=== PATIENT | female | born 1990 | race Caucasian/White ===

== ENCOUNTER 2016-05-28 21:09 | Emergency (ER) | payer MEDICAID ==
[~2016-05-28] VITALS: Ht 165.1 cm; Wt 67.7 kg
[~2016-05-28 21:09] MED LIST: CIPR500T4 PO; PHEN-426 PO
[2016-05-28 21:30] VITALS: BP 111/67; PULSE 62; RESP 16; TEMP 98.1; O2SAT 99
[2016-05-28 23:41] LABS: BLOOD, URINE NEG (NEG); GLUCOSE,URINE NEG (NEG); KETONE, URINE NEG (NEG); NITRITE,URINE NEG (NEG)
[2016-05-28 23:44] LABS: URINE COLOR YELLOW (YELLW/STRAW)
[2016-05-28 23:45] LABS: COMMENT (UR) CULT NOT INDICATED; CULTURE IF INDICATED CULT NOT INDICATED; RBC, URINE 0-2 /hpf (0-3); SQUAMOUS EPITHELIAL CELL URINE 0-5 /hpf (0-5); WBC, URINE 0-2 /hpf (0-5)
[2016-05-29] MEDS ORDERED: METR0.7528 VAGINAL (00:41)
--- NOTE | 2016-05-29 00:46 | PD ---
HPI Chief Complaint: Farmworker Fur Problem/Complaint Time Seen by Provider: 23:26 Travel History International Travel<30 days: No Contact w/Intl Traveler<30days: No Traveled to known affect area: No History of Present Illness HPI 25-year-old female presents to the emergency department by private vehicle for evaluation of vaginal irritation and discharge. Patient states she has had similar symptoms before and has been treated for bacterial vaginosis. Patient denies any pain. No dysuria frequency urgency or hematuria. Last period was normal for her. Patient is 2 para 2 AB 0. Patient is in a monogamous relationship. Patient denies any abdominal pain. Patient denies pelvic pain. Patient denies fever chills. Patient is unable to identify exacerbating or alleviating factors. Patient rates discomfort 5/10 in intensity. PFSH Past Medical History Narrative Medical Ab0 Recurrent bacterial vaginosis; ; occasional alcohol use; nursing notes reviewed Medical History: Denies Significant Hx Diminished Hearing: No Immunizations Current: No Tetanus Vaccination: < 5 Years Influenza Vaccination: No ?: Not LMP: 05/01/16 : 2 Para: 2 Dilation and Curettage (D&C): No Past Surgical History Section: Yes Social History Alcohol Use: Yes (Glass of wine daily) Tobacco Use: No Substance Use: No Allergies-Medications (Allergen,Severity, Reaction): Coded Allergies: Erythromycin (Verified Allergy, Severe, Hives, 05/28/16) Reported Meds & Prescriptions Reported Meds & Active Scripts Active No Active Prescriptions or Reported Medications Review of Systems Except as stated in HPI: all other systems reviewed are Neg General / Constitutional: No: Fever, Chills HENT: No: Congestion Cardiovascular: No: Chest Pain or Discomfort Respiratory: No: Shortness of Breath Gastrointestinal: No: Nausea, Vomiting, Abdominal Pain Genitourinary: Positive: Discharge, No: Dysuria, Pelvic Pain, Vaginal Bleeding Musculoskeletal: No: Myalgias, Arthralgias Skin: No Rash Neurologic: No: Weakness, Dizziness Psychiatric: No: Anxiety Endocrine: No: Heat Intolerance, Cold Intolerance Hematologic/Lymphatic: No: Easy Bruising Physical Exam Narrative GENERAL: Well-developed well-nourished female in no acute distress no respiratory distress SKIN: Warm and dry. HEAD: Normocephalic. EYES: No scleral icterus. No injection or drainage. NECK: Supple, trachea midline. No JVD or lymphadenopathy. CARDIOVASCULAR: Regular rate and rhythm without murmurs, gallops, or rubs. RESPIRATORY: Breath sounds equal bilaterally. No accessory muscle use. GASTROINTESTINAL: Abdomen soft, non-tender, nondistended. Pelvic exam: External exam no redness no induration no lesions; speculum exam scant white cloudy thin discharge no blood no clots no tissue cervical os closed; bimanual exam no adnexal mass or tenderness noted uterine enlargement or cervical motion tenderness. MUSCULOSKELETAL: No cyanosis, or edema. BACK: Nontender without obvious deformity. No CVA tenderness. Data Data Last Documented VS Vital Signs Date Time Temp Pulse Resp B/P Pulse Ox O2 Delivery O2 Flow Rate FiO2 05/28/16 21:30 98.1 62 16 111/67 99 Room Air Orders Gc And Chlamydia Pcr (05/28/16 23:27) Wet Prep Profile (05/28/16 23:27) Urinalysis - C+S If Indicated (05/28/16 23:27) Ed Urine Pregnancytest Poc (05/28/16 23:27) Labs Laboratory Tests Test 05/28/16 23:30 Urine Color YELLOW Urine Turbidity CLEAR Urine pH 6.0 Urine Specific [place] 1.025 Urine Protein NEG mg/dL Urine Glucose (UA) NEG mg/dL Urine Ketones NEG mg/dL Urine Occult Blood NEG Urine Nitrite NEG Urine Bilirubin NEG Urine Leukocyte Esterase NEG Urine RBC 0-2 /hpf Urine WBC 0-2 /hpf Urine Squamous Epithelial 0-5 /hpf Cells Urine Bacteria NONE /hpf Microscopic Urinalysis Comment CULT NOT INDICATED Clue Cells (Wet Prep) NONE SEEN Vaginal Trichomonas (Wet Prep) NONE SEEN Vaginal Yeast (Wet Prep) NONE SEEN MDM Medical Decision Making Medical Screen Exam Complete: Yes Emergency Medical Condition: Yes Medical Record Reviewed: Yes Interpretation(s) UA: wnl wet prep: negative poc hcg: negative Differential Diagnosis Vaginal discharge, bacterial vaginosis, yeast/candidiasis, UTI, Narrative Course Urinalysis wet prep and [id number] values are negative; exam consistent with probable bacterial vaginosis; patient given prescription for MetroGel is stable for outpatient management Diagnosis Primary Impression: Vaginosis Referrals: Primary Care Physician call for appointment Patient Instructions: General Instructions Additional Instructions: Complete MetroGel vaginal for scripts follow-up with primary care provider Return to the emergency department for any concerns or change in condition Med/Other Pt SpecificInfo: Prescription(s) given Scripts Metronidazole Vaginal Gel (Metrogel Vaginal Gel)0.75 % Gel1 Appl VAGINAL HS #1 TUBE Ref 0 Prov:Pilar Hooper MD 05/29/16 Disposition: 01 DISCHARGE HOME Condition: Stable Pilar Hooper MD May 29, 2016 00:46
[2016-05-29 00:55] VITALS: BP 118/68; PULSE 72; RESP 14; O2SAT 100
[2016-05-29 04:07] LABS: CHLAMYDIA PCR NOT DETECTED (NOT DETECT); NEISSERIA PCR NOT DETECTED (NOT DETECT)
== END 2016-05-29 01:00 | disposition home or self-care (01) ==
LOC: PHED 21:09
DX: N76.0 Acute vaginitis (principal)
CPT/HCPCS: 81001; 84703; 87210; 87491; 87591; 99283

== ENCOUNTER 2016-07-08 11:38 | Emergency (ER) | payer MEDICAID ==
[~2016-07-08] VITALS: Ht 165.1 cm; Wt 65.4 kg
[~2016-07-08 11:38] MED LIST changes: -CIPR500T4 PO; +METR0.7528 VAGINAL; -PHEN-426 PO
[2016-07-08 11:40] VITALS: BP 107/69; PULSE 70; RESP 16; TEMP 98.8; O2SAT 96
--- NOTE | 2016-07-08 11:56 | PD ---
HPI Chief Complaint: Abdominal Pain Time Seen by Provider: 11:55 Travel History International Travel<30 days: No Contact w/Intl Traveler<30days: No Traveled to known affect area: No History of Present Illness HPI 25-year-old female came to the emergency room with history of abdominal cramps and diarrhea since yesterday. Patient says that she ate lunch at a restaurant and soon after her stomach started to rumble and she started getting some cramps. She was at work when she started getting chills. After coming home she just laid in her bed but then had to go to the bathroom 3 times and had watery diarrhea. She's been nauseous but trying not to vomit since she doesn't like to vomit. Vital signs otherwise stable. She is otherwise a healthy person. [facility] Past Medical History Narrative Medical List of his past medical, surgical, social and family history is reviewed from the nursing note. Medical History: Denies Significant Hx Diminished Hearing: No Immunizations Current: No ?: Not LMP: 06/29/16 : 2 Para: 2 Dilation and Curettage (D&C): No Past Surgical History Surgical History: No Previous Surgery Section: Yes Social History Alcohol Use: No Tobacco Use: No Substance Use: No Allergies-Medications (Allergen,Severity, Reaction): Coded Allergies: Erythromycin (Verified Allergy, Severe, Hives, 07/09/16) Comments List of her allergies reviewed from the nursing note. Reported Meds & Prescriptions Reported Meds & Active Scripts Active Bentyl (Dicyclomine HCl) 20 Mg Tab 20 Mg PO QID Lortab (Hydrocodone-Acetaminophen) 5-325 Mg Tab 1 Tab PO Q6H PRN Zofran Odt (Ondansetron Odt) 4 Mg Tab 4 Mg SL Q6HR PRN Narrative Medication List of her home medications reviewed from the nursing note. Review of Systems Except as stated in HPI: all other systems reviewed are Neg Physical Exam Narrative GENERAL: Awake, alert, anxious, mild distress SKIN: Focused skin assessment warm/dry. HEAD: Atraumatic. Normocephalic. EYES: Pupils equal and round. No scleral icterus. No injection or drainage. ENT: No nasal bleeding or discharge. Mucous membranes pink and moist. NECK: Trachea midline. No JVD. CARDIOVASCULAR: Regular rate and rhythm. No murmur appreciated. RESPIRATORY: No accessory muscle use. Clear to auscultation. Breath sounds equal bilaterally. GASTROINTESTINAL: Abdomen soft, non-tender, nondistended. Hyperactive bowel sounds. Hepatic and splenic margins not palpable. MUSCULOSKELETAL: No obvious deformities. No clubbing. No cyanosis. No edema. NEUROLOGICAL: Awake and alert. No obvious cranial nerve deficits. Motor grossly within normal limits. Normal speech. PSYCHIATRIC: Appropriate mood and affect; insight and judgment normal. Data Data Last Documented VS Vital Signs Date Time Temp Pulse Resp B/P Pulse Ox O2 Delivery O2 Flow Rate FiO2 07/08/16 13:40 67 16 87/50 99 Room Air 07/08/16 11:40 98.8 Orders Basic Metabolic Panel (Bmp) (07/08/16 12:00) Complete Blood Count With Diff (07/08/16 12:00) Iv Access Insert/Monitor (07/08/16 12:00) Ecg Monitoring (07/08/16 12:00) Oximetry (07/08/16 12:00) Ondansetron Inj (Zofran Inj) (07/08/16 12:00) Sodium Chlor 0.9% 1000 Ml Inj (Ns 1000 M (07/08/16 12:00) Sodium Chloride 0.9% Flush (Ns Flush) (07/08/16 12:00) Dicyclomine (Bentyl) (07/08/16 12:15) Labs Laboratory Tests Test 07/08/16 12:05 White Blood Count 4.2 TH/MM3 Red Blood Count 4.10 MIL/MM3 Hemoglobin 13.5 GM/DL Hematocrit 38.7 % Mean Corpuscular Volume 94.4 FL Mean Corpuscular Hemoglobin 32.9 PG Mean Corpuscular Hemoglobin 34.8 % Concent Red Cell Distribution Width 12.3 % Platelet Count 212 TH/MM3 Mean Platelet Volume 8.3 FL Neutrophils (%) (Auto) 64.6 % Lymphocytes (%) (Auto) 20.5 % Monocytes (%) (Auto) 14.2 % Eosinophils (%) (Auto) 0.2 % Basophils (%) (Auto) 0.5 % Neutrophils # (Auto) 2.7 TH/MM3 Lymphocytes # (Auto) 0.9 TH/MM3 Monocytes # (Auto) 0.6 TH/MM3 Eosinophils # (Auto) 0.0 TH/MM3 Basophils # (Auto) 0.0 TH/MM3 CBC Comment DIFF FINAL Differential Comment Sodium Level 143 MEQ/L Potassium Level 3.9 MEQ/L Chloride Level 108 MEQ/L Carbon Dioxide Level 27.8 MEQ/L Anion Gap 7 MEQ/L Blood Urea Nitrogen 7 MG/DL Creatinine 0.56 MG/DL Estimat Glomerular Filtration 132 ML/MIN Rate Random Glucose 93 MG/DL Calcium Level 8.3 MG/DL MDM Medical Decision Making Medical Screen Exam Complete: Yes Emergency Medical Condition: Yes Medical Record Reviewed: Yes Differential Diagnosis Acute gastroenteritis, food poisoning Narrative Course 12:22 PM I have ordered IV fluid bolus. Patient will get something for nausea and Bentyl by mouth. Awaiting for the blood test results to come back. 1:28 PM test results are within normal limit. Patient will be discharged home. Procedures EKG Prior to Arrival: No Diagnosis Primary Impression: Viral illness Additional Impression: Acute gastroenteritis Referrals: Primary Care Physician 2 days Additional Instructions: Please return to the ER if the condition worsens or any other new concerns. Otherwise take the medication as per the prescription direction. Follow-up with the primary care. Med/Other Pt SpecificInfo: Prescription(s) given Scripts Ondansetron Odt (Zofran Odt)4 Mg Tab4 Mg SL Q6HR PRN (Nausea/Vomiting) #10 TAB Ref 0 Prov:Lora Cortez MD 07/08/16 Disposition: 01 DISCHARGE HOME Condition: Stable Lora Cortez MD July 08, 2016 11:56
[2016-07-08] MEDS ORDERED: ONDANSETRON HCL 4 MG/2 ML VIAL IVP ONE (12:00)
[2016-07-08] MEDS ORDERED: SODIUM CHLORIDE 0.9% FLUSH 10 ML FLUSH IV FLUSH PRN (12:00)
[2016-07-08] MEDS ORDERED: SODIUM CHLOR 0.9% 1000 ML INJ 1,000 ML IV SCH (12:00)
[2016-07-08] MEDS ORDERED: DICYCLOMINE HCL 10 MG CAP PO ONE (12:15)
[2016-07-08 12:19] LABS: AUTOMATED NEUTROPHIL # 2.7 TH/MM3 (1.8-7.7); BASOPHIL % 0.5 % (0.0-2.0); EOSINOPHIL % 0.2 % (0.0-4.0); HEMATOCRIT 38.7 % (35.0-46.0); HEMO FLAGS DIFF FINAL; LYMPH % 20.5 % (9.0-44.0); LYMPHOCYTE # 0.9 TH/MM3 (1.0-4.8); MEAN CELL VOLUME 94.4 FL (80.0-100.0); MEAN CORPUSCULAR HEMOGLOBIN 32.9 PG (27.0-34.0); MEAN CORPUSCULAR HGB CONC 34.8 % (32.0-36.0); MONO % 14.2 % (0.0-8.0); NEUT % 64.6 % (16.0-70.0); PLATELET COUNT 212 TH/MM3 (150-450); RED CELL DISTRIBUTION WIDTH 12.3 % (11.6-17.2); WHITE BLOOD COUNT 4.2 TH/MM3 (4.0-11.0)
[2016-07-08 12:39] VITALS: O2SAT 99
[2016-07-08 13:10] LABS: POTASSIUM 3.9 MEQ/L (3.5-5.1)
[2016-07-08 13:13] LABS: BICARBONATE 27.8 MEQ/L (21.0-32.0)
[2016-07-08] MEDS ORDERED: ZOFR4TAB3 SL (13:30)
[2016-07-08 13:40] VITALS: BP 87/50; PULSE 67; RESP 16; O2SAT 99
[2016-07-09] MEDS ORDERED: HYDR-3533 PO (23:08)
[2016-07-09] MEDS ORDERED: BENT20TA PO (23:34)
== END 2016-07-08 13:47 | disposition home or self-care (01) ==
LOC: PHED 11:38
DX: B34.9 Viral infection, unspecified (principal); K52.9 Noninfective gastroenteritis and colitis, unspecified
CPT/HCPCS: 80048; 85025; 96374; 99284; J2405; J7030

== ENCOUNTER 2016-07-09 19:36 | Emergency (ER) | payer MEDICAID ==
[~2016-07-09] VITALS: Ht 165.1 cm; Wt 66.4 kg
[~2016-07-09 19:36] MED LIST changes: -METR0.7528 VAGINAL; +ZOFR4TAB3 SL
[2016-07-09 19:39] VITALS: BP 107/76; PULSE 80; RESP 17; TEMP 98.9; O2SAT 100
--- NOTE | 2016-07-09 20:39 | PD ---
HPI Chief Complaint: Abdominal Pain Time Seen by Provider: 20:27 Travel History International Travel<30 days: No Contact w/Intl Traveler<30days: No Traveled to known affect area: No History of Present Illness HPI The patient is a 25-year-old female who is had lower abdominal cramps and diarrhea for 2 days. She states on Wednesday she had a fever about 103. She denies any blood in the stool. She is not nauseated today and has not vomited. She denies any family history of bowel problems like regional eyes or ulcerative colitis. She has had a but this is her only abdominal surgery, she still has her gallbladder and appendix. She was seen yesterday for this and the white count was in the 4000 range, she returns because of the painful cramping in the lower quadrants. The patient was given a prescription for Zofran yesterday for nausea. PFSH Past Medical History Medical History: Denies Significant Hx Diminished Hearing: No Immunizations Current: No Influenza Vaccination: No ?: Not LMP: 06/29/16 : 2 Para: 2 Dilation and Curettage (D&C): No Past Surgical History Section: Yes (X1) Social History Alcohol Use: No Tobacco Use: No Substance Use: No Allergies-Medications (Allergen,Severity, Reaction): Coded Allergies: Erythromycin (Verified Allergy, Severe, Hives, 07/09/16) Reported Meds & Prescriptions Reported Meds & Active Scripts Active Lortab (Hydrocodone-Acetaminophen) 5-325 Mg Tab 1 Tab PO Q6H PRN Zofran Odt (Ondansetron Odt) 4 Mg Tab 4 Mg SL Q6HR PRN Review of Systems Except as stated in HPI: all other systems reviewed are Neg Physical Exam Narrative GENERAL: The patient is alert, oriented 3 in moderate apparent distress with her bilateral lower quadrant pain. She does appear mildly dehydrated. SKIN: Focused skin assessment warm/dry. HEAD: Atraumatic. Normocephalic. EYES: Pupils equal and round. No scleral icterus. No injection or drainage. ENT: No nasal bleeding or discharge. Mucous membranes pink and moist. NECK: Trachea midline. No JVD. CARDIOVASCULAR: Regular rate and rhythm. No murmur appreciated. RESPIRATORY: No accessory muscle use. Clear to auscultation. Breath sounds equal bilaterally. GASTROINTESTINAL: Abdomen soft, with tenderness to direct palpation in the bilateral lower quadrants, nondistended. Hepatic and splenic margins not palpable. No guarding or rebound is present. MUSCULOSKELETAL: No obvious deformities. No clubbing. No cyanosis. No edema. NEUROLOGICAL: Awake and alert. No obvious cranial nerve deficits. Motor grossly within normal limits. Normal speech. PSYCHIATRIC: Appropriate mood and affect; insight and judgment normal. Data Data Last Documented VS Vital Signs Date Time Temp Pulse Resp B/P Pulse Ox O2 Delivery O2 Flow Rate FiO2 07/09/16 22:18 103/67 07/09/16 21:22 76 16 100 Room Air 07/09/16 19:39 98.9 Orders Complete Blood Count With Diff (07/09/16 20:33) Comprehensive Metabolic Panel (07/09/16 20:33) Lipase (07/09/16 20:33) Urinalysis - C+S If Indicated (07/09/16 20:33) Ct Abd/Pel W Iv Contrast(Rout) (07/09/16 20:33) Iv Access Insert/Monitor (07/09/16 20:33) Ecg Monitoring (07/09/16 20:33) Oximetry (07/09/16 20:33) Sodium Chloride 0.9% Flush (Ns Flush) (07/09/16 20:45) Ed Urine Pregnancytest Poc (07/09/16 20:33) Sodium Chlor 0.9% 1000 Ml Inj (Ns 1000 M (07/09/16 20:45) Iohexol 350 Inj (Omnipaque 350 Inj) (07/09/16 21:06) Dicyclomine (Bentyl) (07/09/16 23:15) Labs Laboratory Tests Test 07/09/16 07/09/16 20:40 20:50 White Blood Count 5.6 TH/MM3 Red Blood Count 4.03 MIL/MM3 Hemoglobin 12.8 GM/DL Hematocrit 37.5 % Mean Corpuscular Volume 93.0 FL Mean Corpuscular Hemoglobin 31.8 PG Mean Corpuscular Hemoglobin 34.2 % Concent Red Cell Distribution Width 12.1 % Platelet Count 193 TH/MM3 Mean Platelet Volume 8.4 FL Neutrophils (%) (Auto) 66.7 % Lymphocytes (%) (Auto) 18.7 % Monocytes (%) (Auto) 13.5 % Eosinophils (%) (Auto) 0.5 % Basophils (%) (Auto) 0.6 % Neutrophils # (Auto) 3.8 TH/MM3 Lymphocytes # (Auto) 1.0 TH/MM3 Monocytes # (Auto) 0.8 TH/MM3 Eosinophils # (Auto) 0.0 TH/MM3 Basophils # (Auto) 0.0 TH/MM3 CBC Comment DIFF FINAL Differential Comment Sodium Level 142 MEQ/L Potassium Level 3.5 MEQ/L Chloride Level 108 MEQ/L Carbon Dioxide Level 27.1 MEQ/L Anion Gap 7 MEQ/L Blood Urea Nitrogen 8 MG/DL Creatinine 0.55 MG/DL Estimat Glomerular Filtration 135 ML/MIN Rate Random Glucose 82 MG/DL Calcium Level 8.0 MG/DL Total Bilirubin 0.2 MG/DL Aspartate Amino Transf 18 U/L (AST/SGOT) Alanine Aminotransferase 18 U/L (ALT/SGPT) Alkaline Phosphatase 55 U/L Total Protein 6.9 GM/DL Albumin 3.6 GM/DL Lipase 100 U/L Urine Color YELLOW Urine Turbidity CLEAR Urine pH 5.5 Urine Specific [place] 1.015 Urine Protein NEG mg/dL Urine Glucose (UA) NEG mg/dL Urine Ketones NEG mg/dL Urine Occult Blood NEG Urine Nitrite NEG Urine Bilirubin NEG Urine Leukocyte Esterase NEG Urine RBC 0-2 /hpf Urine WBC 0-2 /hpf Urine Squamous Epithelial 0-5 /hpf Cells Urine Bacteria NONE /hpf Microscopic Urinalysis Comment CULT NOT INDICATED MDM Medical Decision Making Medical Screen Exam Complete: Yes Emergency Medical Condition: Yes Medical Record Reviewed: Yes Interpretation(s) The urine is negative and culture is not indicated. The complete metabolic profile shows a calcium of 8.0 but is otherwise normal. The lipase is normal. The CBC is normal, the white count is only 5600. Differential Diagnosis Colitis, appendicitis, gastroenteritis, diverticulitis, dehydration, electrolyte disorder, renal insufficiency Narrative Course The patient likely has a viral gastroenteritis. The blood work, CT imaging does not reveal any of the more serious diagnoses as listed above. Diagnosis Primary Impression: Acute gastroenteritis Med/Other Pt SpecificInfo: Prescription(s) given Scripts Hydrocodone-Acetaminophen (Lortab)5-325 Mg Tab1 Tab PO Q6H PRN (PAIN) #15 TAB Ref 0 Prov:Mike Mendez MD 07/09/16 Disposition: 01 DISCHARGE HOME Condition: Stable Mike Mendez MD July 09, 2016 20:39
[2016-07-09] MEDS ORDERED: SODIUM CHLORIDE 0.9% FLUSH 10 ML FLUSH IV FLUSH PRN (20:45)
[2016-07-09] MEDS: SODIUM CHLOR 0.9% 1000 ML INJ 1,000 ML IV SCH ×2 (20:50→22:08)
[2016-07-09 20:56] LABS: AUTOMATED NEUTROPHIL # 3.8 TH/MM3 (1.8-7.7); BASOPHIL % 0.6 % (0.0-2.0); EOSINOPHIL % 0.5 % (0.0-4.0); HEMATOCRIT 37.5 % (35.0-46.0); HEMO FLAGS DIFF FINAL; LYMPH % 18.7 % (9.0-44.0); MEAN CORPUSCULAR HEMOGLOBIN 31.8 PG (27.0-34.0); MEAN CORPUSCULAR HGB CONC 34.2 % (32.0-36.0); MONO % 13.5 % (0.0-8.0); NEUT % 66.7 % (16.0-70.0); PLATELET COUNT 193 TH/MM3 (150-450); RED BLOOD COUNT 4.03 MIL/MM3 (4.00-5.30); RED CELL DISTRIBUTION WIDTH 12.1 % (11.6-17.2); WHITE BLOOD COUNT 5.6 TH/MM3 (4.0-11.0)
[2016-07-09 20:57] LABS: BLOOD, URINE NEG (NEG); GLUCOSE,URINE NEG (NEG); KETONE, URINE NEG (NEG); NITRITE,URINE NEG (NEG); PH, URINE 5.5 (5.0-8.5)
[2016-07-09 21:00] LABS: URINE COLOR YELLOW (YELLW/STRAW)
[2016-07-09 21:01] LABS: COMMENT (UR) CULT NOT INDICATED; CULTURE IF INDICATED CULT NOT INDICATED; RBC, URINE 0-2 /hpf (0-3); SQUAMOUS EPITHELIAL CELL URINE 0-5 /hpf (0-5); WBC, URINE 0-2 /hpf (0-5)
[2016-07-09 21:04] LABS: CHLORIDE 108 MEQ/L (98-107); POTASSIUM 3.5 MEQ/L (3.5-5.1); SODIUM (NA) 142 MEQ/L (136-145)
[2016-07-09] MEDS ORDERED: IOHEXOL 350 MG/ML 10 ML VIAL (for RAD DIAG) IV ONE (21:06)
[2016-07-09 21:08] LABS: ANION GAP 7 MEQ/L (5-15); BICARBONATE 27.1 MEQ/L (21.0-32.0); BLOOD UREA NITROGEN 8 MG/DL (7-18)
[2016-07-09 21:11] LABS: ALT (GPT) 18 U/L (10-53); AST (GOT) 18 U/L (15-37); GLOMERULAR FILTRATION RATE 135 ML/MIN (>89)
[2016-07-09 21:13] LABS: TOTAL BILIRUBIN ADULT 0.2 MG/DL (0.2-1.0)
[2016-07-09 21:14] LABS: ALKALINE PHOSPHATASE 55 U/L (45-117)
[2016-07-09 21:22] VITALS: BP 90/51; PULSE 76; RESP 16; O2SAT 100
--- NOTE | 2016-07-09 21:56 | RADHPO ---
EXAM DATE/TIME: 07/09/2016 21:01 [facility] COMPARISON: CT ABDOMEN & PELVIS W CONTRAST, May 11, 2011, 21:23. INDICATIONS : Lower abdominal pain and cramping, diarrhea for 2 days with fever. IV CONTRAST: 98 cc Omnipaque 350 (iohexol) IV ORAL CONTRAST: No oral contrast ingested. RADIATION DOSE: 7.80 CTDIvol (mGy) MEDICAL HISTORY : None SURGICAL HISTORY : section. ENCOUNTER: Initial ACUITY: 2 days PAIN SCALE: 6/10 LOCATION: lower quadrant abdomen TECHNIQUE: Volumetric scanning of the abdomen and pelvis was performed. Using automated exposure control and ad justment of the mA and/or kV according to patient size, radiation dose was kept as low as reasonably achievable to obtain optimal diagnostic quality images. 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 No normal spleen is seen in a left upper quadrant. There are multiple lobular circumscribed masses in the medial right up per quadrant which are unchanged from prior and are presumably splenic moieties. The stomach is on th e right and the duodenum is not seen to interpose itself between the superior mesenteric artery and t he aorta in normal fashion. 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 The bowel structures are otherwise unremarkable with no abnormal dilatation, wall thickening or focal inflammatory change. The kidneys, adrenals and pancreas are unremarkable. In the pelvis, there is no evidence of free fluid, mass or adenopathy. The bladder is decompressed. T he inguinal regions are clear. The lung bases and the bony elements are unremarkable. CONCLUSION: No acute CT findings in the abdomen or pelvis. Developmental anomalies of the polysplenia spectrum as described Seth Stearns MD on July 09, 2016 at 21:39 Board Certified Radiologist. This report was verified electronically.
[2016-07-09 22:18] VITALS: BP 103/67
[2016-07-09] MEDS ORDERED: HYDR-3533 PO (23:08)
[2016-07-09] MEDS ORDERED: DICYCLOMINE HCL 10 MG CAP PO ONE (23:15)
[2016-07-09] MEDS ORDERED: BENT20TA PO (23:34)
== END 2016-07-09 23:39 | disposition home or self-care (01) ==
LOC: PHED 19:36
DX: K52.9 Noninfective gastroenteritis and colitis, unspecified (principal)
CPT/HCPCS: 74177; 80053; 81001; 83690; 84703; 85025; 96360; 96361; 99284; J7030; Q9967

== ENCOUNTER 2016-09-02 22:59 | Emergency (ER) | payer MEDICAID ==
[~2016-09-02] VITALS: Ht 165.1 cm; Wt 66.4 kg
[~2016-09-02 22:59] MED LIST changes: +BENT20TA PO; +HYDR-3533 PO
[2016-09-02 23:05] VITALS: BP 110/66; PULSE 66; RESP 16; TEMP 98.1; O2SAT 100; O2SAT 66
[2016-09-02 23:28] LABS: BLOOD, URINE NEG (NEG); GLUCOSE,URINE NEG (NEG); KETONE, URINE NEG (NEG); NITRITE,URINE NEG (NEG); PH, URINE 5.5 (5.0-8.5)
[2016-09-02 23:34] LABS: URINE COLOR STRAW (YELLW/STRAW)
[2016-09-02 23:35] LABS: COMMENT (UR) CULT NOT INDICATED; CULTURE IF INDICATED CULT NOT INDICATED; RBC, URINE 0-3 /hpf (0-3); SQUAMOUS EPITHELIAL CELL URINE 0-5 /hpf (0-5)
[2016-09-03] MEDS ORDERED: LIDOCAINE HCL 1% 50 ML VIAL IM ONE
[2016-09-03] MEDS ORDERED: DOXYCYCLINE HYCLATE 100 MG TAB PO ONE
[2016-09-03] MEDS ORDERED: cefTRIAXone 250 MG VIAL IM ONE
[2016-09-03] MEDS ORDERED: DOXY100C PO (00:04)
--- NOTE | 2016-09-03 00:05 | PD ---
HPI Chief Complaint: Returned Item Clerk Problem/Complaint Time Seen by Provider: 23:15 Travel History International Travel<30 days: No Contact w/Intl Traveler<30days: No Traveled to known affect area: No History of Present Illness HPI 25-year-old female presents to the emergency department for treatment of STD. Patient reports that 08/18/16 she went to the health department for her annual exam with blood work done and specimens collected to evaluate for STDs. For syphilis test HIV test and automated test reportedly negative and she was told she was positive for vomiting. Patient states that she was told to come back tomorrow to be treated. Patient denies . Patient states that she does not have gasoline to drive back to the health Department and presents now to be treated. Patient states she has not had any kind of evaluation since 08/18. Patient has been treated in the past for STD. Patient denies any pain. Patient states she just had a pelvic exam. Patient is desirous of receiving antibiotic and does not want to go through pelvic exam again. Patient denies states she receives the Depo-Provera injection. Patient is . Patient denies dysuria frequency urgency flank pain or hematuria. Patient's had no fever or chills. PFSH Past Medical History Narrative Medical STD G2 P 2 AB 0; ; no tobacco use; nursing notes reviewed Medical History: Denies Significant Hx Diminished Hearing: No Immunizations Current: No ?: Not LMP: "ON DEPO" : 2 Para: 2 Dilation and Curettage (D&C): No Past Surgical History Section: Yes (X1) Social History Alcohol Use: No Tobacco Use: No (QUIT AGE 19) Substance Use: No Allergies-Medications (Allergen,Severity, Reaction): Coded Allergies: Erythromycin (Verified Allergy, Severe, Hives, 09/02/16) Reported Meds & Prescriptions Reported Meds & Active Scripts Active Bentyl (Dicyclomine HCl) 20 Mg Tab 20 Mg PO QID Lortab (Hydrocodone-Acetaminophen) 5-325 Mg Tab 1 Tab PO Q6H PRN Zofran Odt (Ondansetron Odt) 4 Mg Tab 4 Mg SL Q6HR PRN Review of Systems Except as stated in HPI: all other systems reviewed are Neg Physical Exam Narrative GENERAL: Well-developed well-nourished female in no acute distress no respiratory distress SKIN: Warm and dry. HEAD: Normocephalic. EYES: No scleral icterus. No injection or drainage. NECK: Supple, trachea midline. No JVD or lymphadenopathy. CARDIOVASCULAR: Regular rate and rhythm without murmurs, gallops, or rubs. RESPIRATORY: Breath sounds equal bilaterally. No accessory muscle use. GASTROINTESTINAL: Abdomen soft, non-tender, nondistended. MUSCULOSKELETAL: No cyanosis, or edema. BACK: Nontender without obvious deformity. No CVA tenderness. Data Data Last Documented VS Vital Signs Date Time Temp Pulse Resp B/P Pulse Ox O2 Delivery O2 Flow Rate FiO2 09/02/16 23:05 98.1 66 16 110/66 100 Orders Gc And Chlamydia Pcr (09/02/16 23:15) Urinalysis - C+S If Indicated (09/02/16 23:15) Ed Urine Pregnancytest Poc (09/02/16 23:15) Labs Laboratory Tests Test 09/02/16 23:15 Urine Color STRAW Urine Turbidity CLEAR Urine pH 5.5 Urine Specific [place] 1.010 Urine Protein NEG mg/dL Urine Glucose (UA) NEG mg/dL Urine Ketones NEG mg/dL Urine Occult Blood NEG Urine Nitrite NEG Urine Bilirubin NEG Urine Leukocyte Esterase TRACE Urine RBC 0-3 /hpf Urine WBC 3-5 /hpf Urine Squamous Epithelial 0-5 /hpf Cells Urine Bacteria NONE /hpf Microscopic Urinalysis Comment CULT NOT INDICATED MDM Medical Decision Making Medical Screen Exam Complete: Yes Emergency Medical Condition: Yes Medical Record Reviewed: Yes Interpretation(s) Point of care hCG: Negative; urinalysis: Values in normal range except for trace leukocyte esterase, culture not indicated Differential Diagnosis UTI, , STD Narrative Course Patient presents requesting antibiotic treatment for STD; patient has just recently gone to pelvic exam and does not report any new findings. Point-of- care hCG negative, urinalysis normal, PCR GC and chlamydia obtained. Patient presents with paperwork from health Department with positive chlamydia test from 08/18/16. Patient will be presumptively cover for GC and gonorrhea patient is allergic to erythromycin will be given doxycycline. Diagnosis Primary Impression: STD (female) Referrals: [facility] Dept. call for appointment Patient Instructions: General Instructions Additional Instructions: Complete course of antibiotic as prescribed; do not become sexually active while taking this medication unless using condoms and only after partner has been treated; do not become while on this medication as it is contraindicated in ; avoid sun exposure while on this medication because it causes photosensitivity Increase fluid hydration Follow-up with health Department Return to the emergency department for any concerns or change in condition Med/Other Pt SpecificInfo: Prescription(s) given Scripts Doxycycline Hyclate 100 Mg [id number] Mg PO BID #14 CAP Ref 0 Prov:Pilar Hooper MD 09/03/16 Disposition: 01 DISCHARGE HOME Condition: Stable Pilar Hooper MD Sep 03, 2016 00:05
[2016-09-03] MEDS ORDERED: LIDOCAINE HCL 1% PF 30 ML VIAL ONE (00:09)
[2016-09-03 03:39] LABS: CHLAMYDIA PCR NOT DETECTED (NOT DETECT); NEISSERIA PCR NOT DETECTED (NOT DETECT)
== END 2016-09-03 00:31 | disposition home or self-care (01) ==
LOC: PHED 22:59
DX: A56.8 Sexually transmitted chlamydial infection of other sites (principal)
CPT/HCPCS: 81001; 84703; 87491; 87591; 96372; 99284; J0696

== ENCOUNTER 2016-09-16 07:24 | Emergency (ER) | payer MEDICAID ==
[~2016-09-16] VITALS: Ht 167.6 cm; Wt 64.4 kg
[~2016-09-16 07:24] MED LIST changes: +DOXY100C PO
[2016-09-16 07:29] VITALS: BP 108/57; PULSE 90; RESP 16; TEMP 100.3; O2SAT 99
--- NOTE | 2016-09-16 07:48 | PD ---
HPI Chief Complaint: ENT Complaint Time Seen by Provider: 07:46 Travel History International Travel<30 days: No Contact w/Intl Traveler<30days: No Traveled to known affect area: No History of Present Illness HPI 25-year-old female with history of no significant past medical issues, presents to the ER today with sore throat, malaise, fevers. She denies any coughing, vomiting, abdominal pain, diarrhea, or other symptoms. She states that her son had strep throat. Modifying Factors: None Associated Signs & Symptoms: Sore throat, malaise, fevers Risk Factors: Sick contact with strep PFSH Past Medical History Medical History: Denies Significant Hx Diminished Hearing: No Immunizations Current: No Influenza Vaccination: No ?: Not LMP: DEPO : 2 Para: 2 Dilation and Curettage (D&C): No Past Surgical History Section: Yes (X1) Social History Alcohol Use: No Tobacco Use: No (QUIT AGE 19) Substance Use: No Allergies-Medications (Allergen,Severity, Reaction): Coded Allergies: Erythromycin (Verified Allergy, Severe, Hives, 09/16/16) Reported Meds & Prescriptions Reported Meds & Active Scripts Active No Active Prescriptions or Reported Medications Review of Systems Except as stated in HPI: all other systems reviewed are Neg Physical Exam Narrative GENERAL: Well-developed young white female patient who appears in mild distress. Awake and oriented 3. SKIN: Focused skin assessment warm/dry. HEAD: Atraumatic. Normocephalic. EYES: Pupils equal and round. No scleral icterus. No injection or drainage. ENT: Mucosa pink and moist. With notable erythema but no exudates. No uvular edema. No uvular, palatal, or tonsillar deviation. Airway patent. Nasal turbinates appear normal without nasal blood. NECK: Trachea midline. No JVD. CARDIOVASCULAR: Regular rate and rhythm. No murmur appreciated. RESPIRATORY: No accessory muscle use. Clear to auscultation. Breath sounds equal bilaterally. GASTROINTESTINAL: Abdomen soft, non-tender, nondistended. Hepatic and splenic margins not palpable. MUSCULOSKELETAL: No obvious deformities. No clubbing. No cyanosis. No edema. NEUROLOGICAL: Awake and alert. No obvious cranial nerve deficits. Motor grossly within normal limits. Normal speech. PSYCHIATRIC: Appropriate mood and affect; insight and judgment normal. Data Data Last Documented VS Vital Signs Date Time Temp Pulse Resp B/P Pulse Ox O2 Delivery O2 Flow Rate FiO2 09/16/16 07:29 100.3 90 16 108/57 99 Orders Group A Rapid Strep Screen (09/16/16 07:46) Influenzae A/B Antigen (09/16/16 07:46) Strep Culture (Group A) (09/16/16 07:58) MDM Medical Decision Making Medical Screen Exam Complete: Yes Emergency Medical Condition: Yes Medical Record Reviewed: Yes Differential Diagnosis Strep pharyngitis versus influenza versus viral syndrome Narrative Course Influenza and rapid strep is negative. However, considering sick contacts and symptoms, my plan would be to treat her for strep pharyngitis. Follow-up with primary care physician. Return for worsening in symptoms as needed. The plan has been discussed with her and she states understanding. Diagnosis Primary Impression: Pharyngitis Med/Other Pt SpecificInfo: Prescription(s) given Scripts Ibuprofen (Motrin Ib)200 Mg [id number] Mg PO QID PRN (PAIN SCALE 1 TO 10) #20 Prov:Fide Szymanski MD 09/16/16 Penicillin V Potassium 500 Mg [id number] Mg PO Q6H 7 Days Ref 0 Prov:Fide Szymanski MD 09/16/16 Disposition: 01 DISCHARGE HOME Condition: Stable Fide Szymanski MD Sep 16, 2016 07:48
[2016-09-16] MEDS ORDERED: PENI500T PO (08:26)
[2016-09-16] MEDS ORDERED: IBUP-1129 PO (08:26)
== END 2016-09-16 08:39 | disposition home or self-care (01) ==
LOC: PHED 07:24
DX: J02.9 Acute pharyngitis, unspecified (principal); Z87.891 Personal history of nicotine dependence
CPT/HCPCS: 87081; 87804; 87880; 99283

== ENCOUNTER 2016-10-06 18:25 | Emergency (ER) | payer MEDICAID ==
[~2016-10-06] VITALS: Ht 165.1 cm; Wt 63.4 kg
[~2016-10-06 18:25] MED LIST changes: -BENT20TA PO; -DOXY100C PO; -HYDR-3533 PO; +IBUP-1129 PO; +PENI500T PO; -ZOFR4TAB3 SL
[2016-10-06 18:35] VITALS: BP 103/75; PULSE 61; RESP 16; TEMP 99; O2SAT 98
[2016-10-06] MEDS ORDERED: DEPO104I SQ (18:42)
--- NOTE | 2016-10-06 19:37 | PD ---
HPI Chief Complaint: ENT Complaint Time Seen by Provider: 19:15 Travel History International Travel<30 days: No Contact w/Intl Traveler<30days: No Traveled to known affect area: No History of Present Illness HPI 25-year-old female presents to the emergency room for evaluation of sore throat , runny nose, and bilateral ear pain for the past several days. Patient was seen in the emergency room for similar symptoms one month ago and given prescriptions for ibuprofen and penicillin. States all she is taking penicillin , or sore throat improvedbut as soon as she stopped it returned. She has not taken anything for symptoms since. She has applied [id number] sprays without relief. Synthroid is severe and worse with swallowing. Rapid strep and culture from previous visit were negative. No fever, chills, nausea, or vomiting. History Past Medical Histgory Medical History: Denies Significant Hx Tetanus Vaccination: < 5 Years LMP: august on control Social History Alcohol Use: Yes (occas. wine) Tobacco Use: No (QUIT AGE 19) Allergies-Medications (Allergen,Severity, Reaction): Coded Allergies: Erythromycin (Verified Allergy, Severe, Hives, 10/06/16) Reported Meds & Prescriptions Reported Meds & Active Scripts Active Reported Depo-SubQ Provera Inj (Medroxyprogesterone Inj) 104 Mg/0.65 Ml Inj 104 Mg SQ Q90D Review of Systems Except as stated in HPI: all other systems reviewed are Neg Physical Exam Narrative GENERAL: Well-nourished, well-developed female in no acute distress. Afebrile. Ambulatory. SKIN: Focused skin assessment warm/dry. HEAD: Normocephalic. EYES: No scleral icterus. No injection or drainage. NECK: Supple, trachea midline. No JVD or lymphadenopathy. ENT: Mucosa pink and moist. Mild erythema without exudates or edema. No uvular edema. No uvular, palatal, or tonsillar deviation. Airway patent. Nasal turbinates appear normal without nasal blood, purulent drainage or septal hematoma. CARDIOVASCULAR: Regular rate and rhythm without murmurs, gallops, or rubs. RESPIRATORY: Breath sounds equal bilaterally. No accessory muscle use. Data Data Last Documented VS Vital Signs Date Time Temp Pulse Resp B/P Pulse Ox O2 Delivery O2 Flow Rate FiO2 10/06/16 18:39 16 10/06/16 18:35 99.0 61 103/75 98 [facility] Medical Screen Exam Complete: Yes Emergency Medical Condition: No Differential Diagnosis Pharyngitis Narrative Course 25-year-old female presents to the emergency room for evaluation of sore throat , runny nose, and bilateral ear pain for the past 2 days. Patient is afebrile and well-appearing in the emergency room. No history of fevers. Throat is mildly erythematous without exudates or edema. Rapid strep and throat culture performed 3 weeks ago was negative. Patient was placed on penicillin anyway. I see no indication for a second dose of antibiotics. Likely viral especially with associated symptoms. Patient was told to follow-up with her PCP or return for worsening symptoms. She understands and agrees to plan. There are no urgent or emergent medical conditions this time. A medical screening exam was performed: At the time of evaluation the presenting medical condition was determined not to be of an emergent nature. The patient was given the option of receiving additional care, but declined. Patient was given options for additional community resources from which to obtain care. The Patient Has Been advised to seek medical attention for their presenting complaint. The patient has been advised to return to the ER at any time if an emergent condition develops. Primary Impression: Encounter for medical screening examination Disposition: 01 DISCHARGE HOME Condition: Stable Marine Rabago Oct 06, 2016 19:37
== END 2016-10-06 19:32 | disposition left against medical advice (07) ==
LOC: PHED 18:25 → PHEFT 19:32
DX: J02.9 Acute pharyngitis, unspecified (principal)
CPT/HCPCS: 99281